=== PATIENT | female | born 1965 | race Caucasian/White ===

== ENCOUNTER 2017-06-27 08:13 | Day surgery (SDC) | payer OTHER ==
[2017-06-27] VITALS (8 sets, daily range): BP systolic 87–141; BP diastolic 46–77; PULSE 60–72; RESP 18–20; TEMP 96.8–98.3; O2SAT 93–99
[~2017-06-27] VITALS: Ht 157.5 cm; Wt 88.2 kg
[~2017-06-27 08:13] MED LIST: AMOX500T PO; ASPI81 PO; BUSP10 PO; CONTOUR1 XX; CYCL-36 PO; FLUO20SO3 PO; FLUT1SPR9; GABA400C5 PO; GLIP10TA6 PO; IBUP800T23 PO; LISI-588 PO; LISI2.5T3 PO; LOPR50TA12 PO; METF-324 PO; METF1000 PO; METO50TA PO; MULT1TAB99; PRIL20TA2 PO; TOPI50TA4 PO
[2017-06-27] MEDS ORDERED: VICT18IN SQ (08:42)
[2017-06-27] MEDS ORDERED: METF1000 PO (08:42)
[2017-06-27] MEDS ORDERED: METO50TA PO (08:42)
[2017-06-27] MEDS ORDERED: MULT1TAB46 (08:42)
[2017-06-27] MEDS ORDERED: MONT10TA4 PO (08:42)
[2017-06-27] MEDS ORDERED: FLUO1TAB3 PO (08:42)
[2017-06-27] MEDS ORDERED: ASPI-110 PO (08:42)
[2017-06-27] MEDS ORDERED: CYCL1TAB29 PO (08:42)
[2017-06-27] MEDS ORDERED: DAPA1TAB3 PO (08:42)
[2017-06-27] MEDS ORDERED: LISI10TA3 PO (08:42)
[2017-06-27] MEDS ORDERED: MOBI15TA PO (08:42)
[2017-06-27] MEDS ORDERED: ATOR20TA15 PO (08:42)
[2017-06-27] MEDS ORDERED: GLIP5TAB8 PO (08:42)
[2017-06-27] MEDS ORDERED: OMEP20TA PO (08:42)
[2017-06-27] MEDS ORDERED: BUSP10TA PO (08:42)
[2017-06-27 09:04] LABS: AUTOMATED NEUTROPHIL # 4.9 TH/MM3 (1.8-7.7); BASOPHIL # 0.1 TH/MM3 (0-0.2); BASOPHIL % 0.9 % (0.0-2.0); EOSINOPHIL # 0.3 TH/MM3 (0-0.4); HEMATOCRIT 43.2 % (35.0-46.0); HEMO FLAGS DIFF FINAL; LYMPH % 36.9 % (9.0-44.0); LYMPHOCYTE # 3.4 TH/MM3 (1.0-4.8); MEAN CELL VOLUME 89.1 FL (80.0-100.0); MEAN CORPUSCULAR HGB CONC 33.6 % (32.0-36.0); MONO % 4.9 % (0.0-8.0); NEUT % 54.3 % (16.0-70.0); PLATELET COUNT 248 TH/MM3 (150-450); RED BLOOD COUNT 4.84 MIL/MM3 (4.00-5.30); RED CELL DISTRIBUTION WIDTH 13.5 % (11.6-17.2); WHITE BLOOD COUNT 9.1 TH/MM3 (4.0-11.0)
[2017-06-27] MEDS ORDERED: SODIUM CHLOR 0.9% 1000 ML IV SCH (09:30)
[2017-06-27] MEDS ORDERED: SODIUM CHLORIDE 2 ML FLUSH PRN IV FLUSH (09:30)
[2017-06-27] MEDS ORDERED: LIDOCAINE 1%/EPINEPHrine 1:100,000 SOLN 20 ML VIAL ONE (10:08)
[2017-06-27] MEDS ORDERED: fentaNYL CITRATE 250 MCG/5 ML AMP ONE (10:31)
[2017-06-27] MEDS ORDERED: MIDAZOLAM HCL 2 MG/2 ML VIAL ONE (10:31)
--- NOTE | 2017-06-27 11:29 | PD.RAD ---
Post CT Procedure Prog Note Procedure Date: Jun 27, 2017 Supervising Radiologist: Nahum Del Toro Plan of Activity See PACS Report for procedural detail/treatment Biopsy Imaging Guidance: CT Side: Right Biopsy Procedure: Liver Specimen: Core Biopsy Nahum Del Toro MD Jun 27, 2017 11:29
[2017-06-27] MEDS ORDERED: HYDROmorphone HCL 2 MG TAB PO PRN (11:30)
--- NOTE | 2017-06-27 11:40 | RADRPT ---
EXAM DATE/TIME: 06/27/2017 10:46 [place] COMPARISON: No previous studies available for comparison. INDICATIONS : Cirrhosis SEDATION TIME: 20 minutes BIOPSY SITE: MEDICATION(S): 1.) 2 mg midazolam (Versed) IV 2.) 125 mcg fentanyl (Sublimaze) IV DEVICE(S): 1.) 18 gauge BioPince needle MEDICAL HISTORY : Diabetes mellitus type 2. Gastroesophageal reflux disease. SURGICAL HISTORY : None. ENCOUNTER: Initial ACUITY: 1 day PAIN SCORE: 0/10 LOCATION: Right upper quadrant A total of one core specimen(s) were obtained and sent to the laboratory for pathologic evaluation. PROCEDURE: 1. CT guided liver biopsy. Prior to the procedure informed consent was obtained. Any appropriate prior imaging studies were rev iewed. Using automated exposure control and adjustment of the mA and/or kV according to patient size, radiat ion dose was kept as low as reasonably achievable to obtain optimal diagnostic quality images. DICOM format image data is available electronically for review and comparison. The site was prepped in a sterile fashion. Full sterile technique was used, including cap, mask, sangeetha rile gloves and gown and a large sterile sheet. Hand hygiene and 2% chlorhexidine and/or betadine/al cohol prep was utilized per protocol for cutaneous antisepsis. The skin and subcutaneous tissues wer e infiltrated with local anesthetic solution. With CT guidance the previously identified target was localized. Biopsy was performed using the presc ribed needle as above. Adequate hemostasis was obtained with compression at the puncture site. Follow-up CT scan reveals no hemorrhage. The patient tolerated the procedure well and there were no complications. The patient was returned to the Radiology Outpatient Unit in stable condition. CONCLUSION: Uncomplicated CT guided biopsy. Nahum Del Toro MD on June 27, 2017 at 11:39 Board Certified Radiologist. This report was verified electronically.
[2017-06-27] MEDS ORDERED: SODIUM CHLORIDE 2 ML FLUSH BID IV FLUSH SCH (21:00)
== END 2017-06-27 15:25 | disposition home or self-care (01) ==
LOC: HRAD 08:13 → HRIP 08:18 → HRAD 15:25
DX: K74.60 Unspecified cirrhosis of liver (principal); E11.9 Type 2 diabetes mellitus without complications; K21.9 Gastro-esophageal reflux disease without esophagitis
CPT/HCPCS: 47000; 77012; 82948; 85025; 88307; 88313; J2250; J3010